=== PATIENT | female | born 1965 | race Caucasian/White ===

== ENCOUNTER 2016-08-08 11:52 | Outpatient (CLI) | payer MEDICAID | END 2016-08-08 11:53 | disposition home or self-care (01) | DX: R10.9 Unspecified abdominal pain (principal) ==

== ENCOUNTER 2016-08-13 16:07 | Emergency (ER) | payer MEDICAID ==
[2016-08-13] MEDS ORDERED: HYDROcod/ACETAM 5/325 MG TABLET PO STA (17:31)
[2016-08-13] MEDS ORDERED: DICYCLOMINE 10 MG CAPSULE PO STA (17:31)
[2016-08-13] MEDS ORDERED: DICYCLOMINE 10 MG CAPSULE PO ONE (17:42)
[2016-08-13] MEDS ORDERED: HYDROcod/ACETAM 5/325 MG TABLET ONE (17:42)
== END 2016-08-13 18:52 | disposition home or self-care (01) ==
DX: R10.30 Lower abdominal pain, unspecified (principal); K57.90 Diverticulosis of intestine, part unspecified, without perforation or abscess without bleeding; Z90.49 Acquired absence of other specified parts of digestive tract; Z90.710 Acquired absence of both cervix and uterus; F17.200 Nicotine dependence, unspecified, uncomplicated
CPT/HCPCS: 36415; 74022; 80053; 80306; 81003; 83690; 85025; 99283; 99284; A9270

== ENCOUNTER 2016-09-04 09:45 | Outpatient (CLI) | payer MEDICAID | END 2016-09-04 09:46 | disposition home or self-care (01) | DX: B37.82 Candidal enteritis (principal) ==

== ENCOUNTER 2016-11-21 09:55 | Outpatient (CLI) | payer MEDICAID | END 2016-11-21 09:56 | disposition home or self-care (01) | DX: R53.83 Other fatigue (principal) ==

== ENCOUNTER 2016-11-23 12:04 | Emergency (ER) | payer MEDICAID ==
--- NOTE | 2016-11-23 12:35 | ED Physician Documentation ---
History of Present Illness - Stated complaint Stated Complaint: Body Pain - Chief complaint Chief Complaint: General - History obtained from History obtained from: Patient - History of Present Illness Timing: How many days ago (several) Pain level max: 5 Pain level now: 5 Radiates to: non-radiating - Additonal information Additional information: Patient is a 51-year-old female who presents to the emergency department with multiple complaints. The first complaint is generalized body aches for the past week. Worse on the right side of the chest, right side of the abdomen and left side of the abdomen. Also bilateral groin pain intermittently. This seems to be worse with movement. She did recently move from one home to another. She denies any fevers or vomiting. Denies any changes in her bowel habits. No hematochezia or melena. She also feels that her legs have been more swollen than usual. States that she also has developed a headache, took Aleve without relief. States sometimes the light hurts her eyes and sometimes she feels like her vision is blurred. States that she has had the abdominal pain for approximately 2 years with no cause found. Review of Systems Ten Systems: 10 systems reviewed and negative Constitutional: denies: Fever, Chills Respiratory: denies: Cough, Wheezing Skin: denies: Rash Musculoskeletal: reports: Back pain (States her back feels sore.) Neurologic: denies: Focal weakness, Numbness, Confused, Altered mental status, LOC PD PAST MEDICAL HISTORY - Past Medical History Past Medical History: Yes Respiratory: Asthma Neuro: Headache/migraine GI: Other Psych: Depression, Anxiety, Post traumatic stress disorder Musculoskeletal: Osteoarthritis, Chronic back pain - Past Surgical History Past Surgical History: Yes General: Cholecystectomy, Colonoscopy, 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 HEENT: Rhinoplasty Derm: Skin cancer surgery - Present Medications Home Medications: Ambulatory Orders Medication Instructions Recorded Confirmed Diazepam 5 mg PO TID 03/16/14 08/13/16 Dicyclomine [Bentyl] 20 mg PO QID PRN #20 capsule 08/13/16 HYDROcod/ACETAM 5/325 [[place] 5/325] 1 - 2 ea PO Q6H PRN #10 tablet 08/13/16 Meloxicam [Mobic] 7.5 mg PO BIDWM PRN #15 tablet 08/13/16 levoFLOXacin [Levaquin] 500 mg PO QD 08/13/16 08/13/16 - Allergies Allergies/Adverse Reactions: Allergies Allergy/AdvReac Type Severity Reaction Status Date / Time Penicillins Allergy Intermediate Hives Verified 08/13/16 16:55 adhesive tape Allergy Rash Verified 08/13/16 16:55 gabapentin [From Neurontin] AdvReac Mild Headache Verified 08/13/16 16:55 - Social History Does the pt smoke?: Yes Smoking Status: Current every day smoker Does the pt drink ETOH?: No Does the pt have substance abuse?: Yes - Immunizations Immunizations are current?: Yes - POLST Patient has POLST: No POLST Status: Full Code PD ED PE NORMAL - Vitals Vital signs reviewed: Yes - General General: Alert and oriented X 3, No acute distress, Well developed/nourished - HEENT HEENT: Atraumatic, PERRL, EOMI, Moist mucous membranes, Pharynx benign - Neck Neck: Supple, no meningeal sign - Cardiac Cardiac: RRR, No murmur, Strong equal pulses - Respiratory Respiratory: No respiratory distress, Clear bilaterally - Abdomen Abdomen: Normal bowel sounds, Soft, Non tender, Non distended - Back Back: No CVA TTP, No spinal TTP - Derm Derm: Warm and dry, No rash - Extremities Extremities: No edema, No calf tenderness / cord - Neuro Neuro: Alert and oriented X 3 - Psych Psych: Normal mood, Normal affect Results - Vitals Vitals: Vital Signs - 24 hr 11/23/16 11/23/16 12:08 15:12 Temperature 37.2 C Heart Rate 67 68 Respiratory 17 16 Rate Blood Pressure 144/80 H 110/60 O2 Saturation 100 96 Oxygen O2 Source Room air - EKG (time done) 1223 Rate: Rate (enter#) (57) Rhythm: NSR [place]: Normal Intervals: Normal [place] QRS: Normal Ischemia: Normal ST segments Computer interpretation: Agree with computer - Labs Labs: Laboratory Tests 11/23/16 11/23/16 11/23/16 13:03 13:03 13:03 WBC 10.6 RBC 5.09 Hgb 14.4 Hct 42.5 MCV 83.4 MCH 28.3 MCHC 33.9 RDW 14.6 Plt Count 228 MPV 9.7 Neut # 5.6 Lymph # 4.3 H [place] # 0.5 Eos # 0.1 Baso # 0.1 Absolute Nucleated RBC 0.00 Nucleated RBCs 0.0 Sodium 141 Potassium 3.8 Chloride 108 Carbon Dioxide 26 Anion Gap 7.0 BUN 10 Creatinine 0.6 Estimated GFR (MDRD) 105 Glucose 100 Calcium 9.4 Total Bilirubin 0.4 AST 20 ALT 19 Alkaline Phosphatase 80 Troponin I < 0.04 B-Natriuretic Peptide Total Protein 7.4 Albumin 4.9 Globulin 2.5 Albumin/Globulin Ratio 2.0 Lipase 172 H Urine Color Urine Clarity Urine pH Ur Specific [place] Urine Protein Urine Glucose (UA) Urine Ketones Urine Occult Blood Urine Nitrite Urine Bilirubin Urine Urobilinogen Ur Leukocyte Esterase Ur Microscopic Review Urine Culture Comments 11/23/16 11/23/16 13:03 14:00 WBC RBC Hgb Hct MCV MCH MCHC RDW Plt Count MPV Neut # Lymph # [place] # Eos # Baso # Absolute Nucleated RBC Nucleated RBCs Sodium Potassium Chloride Carbon Dioxide Anion Gap BUN Creatinine Estimated GFR (MDRD) Glucose Calcium Total Bilirubin AST ALT Alkaline Phosphatase Troponin I B-Natriuretic Peptide 18 Total Protein Albumin Globulin Albumin/Globulin Ratio Lipase Urine Color YELLOW Urine Clarity CLEAR Urine pH 6.0 Ur Specific [place] 1.010 Urine Protein NEGATIVE Urine Glucose (UA) NEGATIVE Urine Ketones NEGATIVE Urine Occult Blood NEGATIVE Urine Nitrite NEGATIVE Urine Bilirubin NEGATIVE Urine Urobilinogen 0.2 (NORMAL) Ur Leukocyte Esterase NEGATIVE Ur Microscopic Review NOT INDICATED Urine Culture Comments NOT INDICATED - Rads (name of study) cxr Radiology: Prelim report reviewed, EMP read contemporaneously, See rad report ( No acute intrathoracic abnormality) PD MEDICAL DECISION MAKING - ED course Complexity details: reviewed results, re-evaluated patient, considered differential, d/w patient, d/w family ED course: Patient presents to the emergency department with multiple vague complaints. No acute findings to suggest acute coronary syndrome on EKG or laboratory testing. Does have a mild elevation of her lipase, but her lipase has been higher than this in the past and she is not vomiting. Possible very mild pancreatitis? She denies any alcohol use. Her headache resolved in the emergency department with Compazine, Toradol, Benadryl and Ativan. She is ambulating without difficulty. No evidence of heart failure. No evidence of aortic aneurysm or dissection. Will have her follow-up with her doctor for further evaluation and care of her complaints. Patient counseled regarding signs and symptoms for which I believe and urgent re-evaluation would be necessary. Patient with good understanding of and agreement to plan and is comfortable going home at this time This document was made in part using voice recognition software. While efforts are made to proofread this document, sound alike and grammatical errors may occur. Departure - Departure Disposition: 01 Home, Self Care Clinical Impression: Chest pain Qualifiers: Chest pain type: other chest pain Qualified Code(s): R07.89 - Other chest pain Headache Qualifiers: Headache type: unspecified Headache chronicity pattern: acute headache Intractability: not intractable Qualified Code(s): R51 - Headache Condition: Good Instructions: ED Chest Pain Atypical Unkn Cause, ED Headache Migraine Follow-Up: Royce Pizarro PA-C [Primary Care Provider] - Within 1 week Comments: Rest today. Return if you worsen. Your blood pressure was elevated today on check in to the emergency department. This does not mean that you have hypertension, it is a common phenomenon to check into the emergency department and have elevated blood pressure. I recommend that you see your primary care physician within the week to have it rechecked when you're feeling better. Discharge Date/Time: 11/23/16 15:12
[2016-11-23] MEDS ORDERED: KETOROLAC 30 MG/ML VIAL ONE (13:13)
[2016-11-23] MEDS ORDERED: LORazepam 2 MG/ML SYRINGE ONE (13:14)
[2016-11-23] MEDS: KETOROLAC 30 MG/ML VIAL IVP STA (13:17)
[2016-11-23] MEDS: LORazepam 2 MG/ML SYRINGE IVP STA (13:17)
[2016-11-23 13:18] LABS: BASOPHILS # (AUTO) 0.1 10^3/uL (0.0-0.1); BASOPHILS % (AUTO) 0.9 %; EOSINOPHILS # (AUTO) 0.1 10^3/uL (0.0-0.7); EOSINOPHILS % (AUTO) 0.8 %; HCT - HEMATOCRIT 42.5 % (37.0-47.0); HGB - HEMOGLOBIN 14.4 g/dL (12.0-16.0); LYMPHOCYTES # (AUTO) 4.3 10^3/uL (1.5-3.5); LYMPHOCYTES % (AUTO) 40.7 %; MEAN CORPUSCULAR HEMOGLOBIN 28.3 pg (27.0-31.0); MEAN CORPUSCULAR HGB CONC 33.9 g/dL (32.0-36.0); MEAN CORPUSCULAR VOLUME 83.4 fL (81.0-99.0); MEAN PLATELET VOLUME 9.7 fL (7.9-10.8); MONOCYTES # (AUTO) 0.5 10^3/uL (0.0-1.0); MONOCYTES % (AUTO) 4.9 %; NEUTROPHILS # (AUTO) 5.6 10^3/uL (1.5-6.6); NEUTROPHILS % (AUTO) 52.7 %; RED BLOOD COUNT 5.09 10^6/uL (4.20-5.40); RED CELL DISTRIBUTION WIDTH 14.6 % (12.0-15.0); UNCORRECTED WHITE BLOOD COUNT 10.6 x10^3/uL; WHITE BLOOD COUNT 10.6 x10^3/uL (4.8-10.8)
[2016-11-23 13:29] LABS: BILIRUBIN,TOTAL 0.4 mg/dL (0.2-1.0); CALCIUM 9.4 mg/dL (8.5-10.3); CREATININE 0.6 mg/dL (0.4-1.0); POTASSIUM 3.8 mmol/L (3.5-5.0); TOTAL PROTEIN 7.4 g/dL (6.7-8.2)
[2016-11-23] MEDS ORDERED: PROCHLORPERAZINE 10 MG/2 ML VIAL ONE (14:08)
[2016-11-23] MEDS ORDERED: diphenhydrAMINE INJ 50 MG/ML VIAL ONE (14:08)
[2016-11-23] MEDS: diphenhydrAMINE INJ 50 MG/ML VIAL IVP STA (14:11)
[2016-11-23] MEDS: PROCHLORPERAZINE 10 MG/2 ML VIAL IVP STA (14:11)
[2016-11-23 14:26] LABS: BILIRUBIN,URINE NEGATIVE (NEGATIVE)
[2016-11-23 14:28] LABS: UA CHARGE (STRIP ONLY) YES; UR CULTURE IF IND NOT INDICATED
--- NOTE | 2016-11-23 14:56 | XRAY Preliminary Report ---
Exam: XR Chest 1 View IMPRESSION: Normal single view chest. [facility] SITE ID: [id number]
--- NOTE | 2016-11-23 14:59 | XRAY Report ---
EXAM: CHEST RADIOGRAPHY EXAM DATE: 11/23/2016 02:38 PM. CLINICAL HISTORY: Chest pain. COMPARISON: Chest x-ray 06/20/2016. TECHNIQUE: 1 view. FINDINGS: Lungs/Pleura: No focal opacities evident. No pleural effusion. No pneumothorax. Mediastinum: Within exam limitations, cardiomediastinal contour is normal. Other: None. IMPRESSION: Normal single view chest. [facility] Referring Provider Line: [phone] SITE ID: [id number]
[2016-11-23 15:13] VITALS: BP 110/60
== END 2016-11-23 15:12 | disposition home or self-care (01) ==
LOC: ED 12:04
DX: R07.9 Chest pain, unspecified (principal); R07.89 Other chest pain; R51 Headache; R03.0 Elevated blood-pressure reading, without diagnosis of hypertension; J45.909 Unspecified asthma, uncomplicated; M19.90 Unspecified osteoarthritis, unspecified site; F17.200 Nicotine dependence, unspecified, uncomplicated
CPT/HCPCS: 36415; 71010; 80053; 81001; 81003; 83690; 83880; 84484; 85025; 87086; 93005; 93010; 96374; 96375; 99283; 99284

== ENCOUNTER 2017-08-03 14:28 | Emergency (ER) | payer MEDICAID ==
[2017-08-03] MEDS ORDERED: MORPHINE 10 MG/ML VIAL IVP STA (14:58)
--- NOTE | 2017-08-03 15:00 | ED Physician Documentation ---
PD HPI BACK PAIN - Stated complaint Stated Complaint: MID BACK PAIN - Chief complaint Chief Complaint: Cardiac - History obtained from History obtained from: Patient - History of Present Illness Timing - onset: Other (52-year-old woman with some ongoing abdominal issues without clear diagnosis status post upper endoscopy with chronic constipation. She is also had a remote Cholecystectomy presents with mid back pain radiating across like a burning for the last 2 days to the radiating to the right upper quadrant associated with sweats and chills without measured fevers. She had a whitish bowel movement the other day.) Review of Systems Ten Systems: 10 systems reviewed and negative Constitutional: reports: Myalgias, Fatigue, Sweats. denies: Fever, Chills Nose: denies: Rhinorrhea / runny nose, Congestion GI: reports: Abdominal Pain, Nausea, Constipation. 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 HEENT: Rhinoplasty Derm: Skin cancer surgery - Present Medications Home Medications: Ambulatory Orders Medication Instructions Recorded Confirmed HYDROcod/ACETAM 5/325 [[place] 5/325] 1 - 2 ea PO Q6H PRN #15 tablet 08/03/17 - Allergies Allergies/Adverse Reactions: Allergies Allergy/AdvReac Type Severity Reaction Status Date / Time Penicillins Allergy Intermediate Hives Verified 08/03/17 14:43 adhesive tape Allergy Rash Verified 08/03/17 14:43 gabapentin [From Neurontin] AdvReac Mild Headache Verified 08/03/17 14:43 - Social History Does the pt smoke?: Yes Smoking Status: Current every day smoker Does the pt drink ETOH?: No Does the pt have substance abuse?: Yes - Immunizations Immunizations are current?: Yes - POLST Patient has POLST: No POLST Status: Full Code PD ED PE NORMAL - Vitals Vital signs reviewed: Yes - General General: Alert and oriented X 3, No acute distress - HEENT HEENT: PERRL, EOMI - Neck Neck: Supple, no meningeal sign, No bony TTP - Cardiac Cardiac: RRR, No murmur - Respiratory Respiratory: No respiratory distress, Clear bilaterally - Abdomen Abdomen: Normal bowel sounds, Soft, Non tender - Back Back: No CVA TTP, No spinal TTP - Derm Derm: Other (No shingles rash at this juncture) - Extremities Extremities: No edema, No calf tenderness / cord - Neuro Neuro: Alert and oriented X 3, Normal speech Results - Vitals Vitals: Vital Signs - 24 hr 08/03/17 08/03/17 08/03/17 14:42 14:51 16:39 Temperature 36.7 C Heart Rate 70 67 54 L Respiratory 20 17 16 Rate Blood Pressure 121/85 H 121/85 H 122/81 H O2 Saturation 98 97 95 Oxygen O2 Source Room air - EKG (time done) 1439 Rate: Rate (enter#) (74) Rhythm: NSR [place]: Normal Intervals: Normal [place] QRS: Normal Ischemia: Normal ST segments Computer interpretation: Agree with computer - Labs Labs: Laboratory Tests 08/03/17 08/03/17 08/03/17 15:05 15:05 15:30 WBC 10.0 RBC 4.93 Hgb 13.8 Hct 41.3 MCV 83.8 MCH 27.9 MCHC 33.3 RDW 14.2 Plt Count 253 MPV 9.0 Neut # 5.5 Lymph # 3.7 H [place] # 0.6 Eos # 0.1 Baso # 0.1 Absolute Nucleated RBC 0.00 Nucleated RBC % 0.0 Sodium 140 Potassium 4.0 Chloride 108 Carbon Dioxide 25 Anion Gap 7.0 BUN 12 Creatinine 0.6 Estimated GFR (MDRD) 105 Glucose 91 Calcium 9.0 Total Bilirubin 0.7 AST 14 ALT 14 Alkaline Phosphatase 79 Total Protein 7.1 Albumin 4.4 Globulin 2.7 Albumin/Globulin Ratio 1.6 Lipase 34 Urine Color YELLOW Urine Clarity CLEAR Urine pH 6.0 Ur Specific [place] 1.015 Urine Protein NEGATIVE Urine Glucose (UA) NEGATIVE Urine Ketones NEGATIVE Urine Occult Blood NEGATIVE Urine Nitrite NEGATIVE Urine Bilirubin NEGATIVE Urine Urobilinogen 0.2 (NORMAL) Ur Leukocyte Esterase NEGATIVE Ur Microscopic Review NOT INDICATED Urine Culture Comments NOT INDICATED - Rads (name of study) CT A/P Radiology: EMP read contemporaneously (NAD) PD MEDICAL DECISION MAKING - ED course ED course: 52-year-old woman with right-sided back pain which is probably musculoskeletal but has some other atypical symptoms so workup was pursued including CT imaging without relevant findings. Her pain was easily controlled in the emergency department. Departure - Departure Disposition: 01 Home, Self Care Clinical Impression: Back pain Qualifiers: Back pain location: thoracic back pain Chronicity: acute Back pain laterality: right Qualified Code(s): M54.6 - Pain in thoracic spine Condition: Good Record reviewed to determine appropriate education?: Yes Instructions: ED Low Back Pain Injury Prescriptions: HYDROcod/ACETAM 5/325 [[place] 5/325] 1 - 2 ea PO Q6H PRN #15 tablet PRN Reason: Pain Comments: Return for increasing or changed pain or other new symptoms including but not limited to fevers, rash, vomiting. Otherwise follow-up with your doctor, next available appointment.
[2017-08-03 15:29] LABS: BASOPHILS # (AUTO) 0.1 10^3/uL (0.0-0.1); BASOPHILS % (AUTO) 0.9 %; EOSINOPHILS # (AUTO) 0.1 10^3/uL (0.0-0.7); EOSINOPHILS % (AUTO) 1.2 %; HGB - HEMOGLOBIN 13.8 g/dL (12.0-16.0); LYMPHOCYTES # (AUTO) 3.7 10^3/uL (1.5-3.5); LYMPHOCYTES % (AUTO) 36.7 %; MEAN CORPUSCULAR HEMOGLOBIN 27.9 pg (27.0-31.0); MEAN CORPUSCULAR HGB CONC 33.3 g/dL (32.0-36.0); MEAN CORPUSCULAR VOLUME 83.8 fL (81.0-99.0); MONOCYTES # (AUTO) 0.6 10^3/uL (0.0-1.0); MONOCYTES % (AUTO) 5.9 %; NEUTROPHILS # (AUTO) 5.5 10^3/uL (1.5-6.6); NEUTROPHILS % (AUTO) 55.3 %; PLT - PLATELET COUNT 253 10^3/uL (130-450); RED BLOOD COUNT 4.93 10^6/uL (4.20-5.40); RED CELL DISTRIBUTION WIDTH 14.2 % (12.0-15.0)
[2017-08-03 16:00] LABS: ALBUMIN 4.4 g/dL (3.2-5.5); ALBUMIN/GLOBULIN RATIO 1.6 (1.0-2.2); BILIRUBIN,TOTAL 0.7 mg/dL (0.2-1.0); CREATININE 0.6 mg/dL (0.4-1.0); TOTAL PROTEIN 7.1 g/dL (6.7-8.2)
[2017-08-03 16:02] LABS: BILIRUBIN,URINE NEGATIVE (NEGATIVE); GLUCOSE, URINE (UA) NEGATIVE (NEGATIVE); KETONES,URINE (UA) NEGATIVE (NEGATIVE); LEUKOCYTE ESTERASE, URINE NEGATIVE (NEGATIVE); NITRITE,URINE NEGATIVE (NEGATIVE); OCCULT BLOOD,URINE NEGATIVE (NEGATIVE); PROTEIN,URINE NEGATIVE (NEGATIVE); UROBILINOGEN,URINE 0.2 (NORMAL) E.U./dL (NORMAL)
[2017-08-03 16:06] LABS: CLARITY,URINE CLEAR (CLEAR)
[2017-08-03] MEDS ORDERED: IOPAMIDOL-300 100 ML VIAL ONE (16:20)
[2017-08-03] MEDS ORDERED: IOPAMIDOL-300 100 ML VIAL IVP ONE (16:27)
[2017-08-03 16:39] VITALS: BP 122/81
--- NOTE | 2017-08-03 17:32 | CT Preliminary Report ---
Exam: CT ABDOMEN/PELVIS W/ IMPRESSION: 1. Normal appendix. 2. Small volume of stool in the colon. No diverticulitis. No bowel obstruction. 3. No obstructing calculi. No hydronephrosis. No bladder calculi. 4. Status post cholecystectomy. [facility] SITE ID: [id number]
[2017-08-03] MEDS ORDERED: HYDROcod/ACET 5/325 Prepack 6 PO STA (17:40)
--- NOTE | 2017-08-03 17:42 | CT Report ---
EXAM: CT ABDOMEN AND PELVIS EXAM DATE: 08/03/2017 04:37 PM. CLINICAL HISTORY: Right abdominal/back pain. Posterior abdominal pain. COMPARISONS: 08/13/2016. 06/20/2016. 08/21/2015. TECHNIQUE: Routine helical CT imaging was performed through the abdomen and pelvis. IV contrast: 100 mL of Isovue-300. Enteric contrast: No. Reconstructions: Coronal and sagittal. In accordance with CT protocol optimization, one or more of the following dose reduction techniques w ere utilized for this exam: automated exposure control, adjustment of mA and/or KV based on patient s ize, or use of iterative reconstructive technique. FINDINGS: Lung Bases: Lung bases are clear. Included portions of the heart are unremarkable. Liver: Liver enhances homogenously. Mild intrahepatic ductal dilatation, likely unchanged. No hepatic lesions. Patent portal vein. Gallbladder/Bile Ducts: Status post cholecystectomy. Common bile duct measures up to 8-9 mm. No filli ng defects are identified. Spleen: Normal. Pancreas: Pancreas enhances homogeneously. No peripancreatic edema or pancreatic duct dilatation. Adrenal Glands: Normal. Kidneys: Kidneys enhance symmetrically. No nephrolithiasis or hydronephrosis. Peritoneal Cavity/Bowel: Stomach is mildly distended and unremarkable. No small bowel obstruction or small bowel wall thickening. Small fatty umbilical hernia. Diverticula are seen in the colon, largely the distal colon. No evidence of diverticulitis. Small volume of stool seen in the colon. The append ix is well visualized and normal. Pelvic Organs: Urinary bladder is unremarkable. Uterus is absent. No pelvic adenopathy. No pelvic terra e fluid. Vasculature: Atherosclerotic calcified plaque. No aneurysm. Mesenteric vasculature is patent. Bones: Degenerative changes of the lower lumbar spine. Grade 1 anterolisthesis of L4 on L5. Lumbar fa cet arthropathy. Degenerative changes of both hip joints. Other: None. IMPRESSION: 1. Normal appendix. 2. Small volume of stool in the colon. No diverticulitis. No bowel obstruction. 3. No obstructing calculi. No hydronephrosis. No bladder calculi. 4. Status post cholecystectomy. [facility] Referring Provider Line: [phone] SITE ID: [id number]
== END 2017-08-03 17:57 | disposition home or self-care (01) ==
LOC: ED 14:28
DX: M54.6 Pain in thoracic spine (principal); F17.200 Nicotine dependence, unspecified, uncomplicated
CPT/HCPCS: 36415; 74177; 80053; 81003; 83690; 85025; 93005; 96374; 99283; Q9967; 81001; 87086

== ENCOUNTER 2017-09-04 16:15 | Emergency (ER) | payer MEDICAID ==
[2017-09-04 16:20] VITALS: BP 143/88
--- NOTE | 2017-09-04 17:17 | ED Physician Documentation ---
PD HPI URI - Stated complaint Stated Complaint: HEAD/NECKACHE - Chief complaint Chief Complaint: Heent - History obtained from History obtained from: Patient - History of Present Illness Timing - onset: How many days ago (4-5) Timing duration: Days Timing details: Gradual onset, Still present, Waxing and waning Associated symptoms: Nasal congestion, Sinus pain, Sore throat (in mornings). No: Fever, Ear pain, Rhinorrhea, Dry cough, Productive cough Contributing factors: No: Sick contact, Travel, Immunocompromised Similar symptoms before: Diagnosis (has had migraines in the past, though she says this does not feel entirely like that.), Has not had sx before Recently seen: Other (talked with PCP and thought was sinus pain. She is on doxy for acne/skin and was to continue that. No other meds.) Review of Systems Constitutional: denies: Fever, Chills Eyes: denies: Loss of vision, Decreased vision Ears: denies: Drainage/discharge, Tinnitus/ringing Nose: reports: Congestion, Sinus pressure / pain. denies: Rhinorrhea / runny nose Throat: reports: Sore throat (in mornings). denies: Dental pain / toothache, Swollen tonsils Cardiac: denies: Chest pain / pressure Respiratory: denies: Dyspnea, Cough Neurologic: reports: Headache. 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: Hysterectomy HEENT: Rhinoplasty Derm: Skin cancer surgery - Present Medications Home Medications: Ambulatory Orders Medication Instructions Recorded Confirmed HYDROcod/ACETAM 5/325 [[place] 5/325] 1 - 2 ea PO Q6H PRN #15 tablet 08/03/17 Cephalexin [Keflex] 500 mg PO TID #20 capsule 09/04/17 Dexamethasone [Decadron] 4 mg PO DAILY #5 tablet 09/04/17 Meclizine [Antivert] 25 mg PO Q6H PRN #20 tablet 09/04/17 Ondansetron Odt [Zofran] 4 mg TL Q6H PRN #15 tablet 09/04/17 Oxycodone HCl/Acetaminophen 1 each PO Q6H PRN #20 tablet 09/04/17 [Percocet 5-325 mg Tablet] - Allergies Allergies/Adverse Reactions: Allergies Allergy/AdvReac Type Severity Reaction Status Date / Time Penicillins Allergy Intermediate Hives Verified 09/04/17 16:19 adhesive tape Allergy Rash Verified 09/04/17 16:19 gabapentin [From Neurontin] AdvReac Mild Headache Verified 09/04/17 16:19 - Social History Does the pt smoke?: Yes Smoking Status: Current every day smoker Does the pt drink ETOH?: No Does the pt have substance abuse?: Yes - Immunizations Immunizations are current?: Yes - POLST Patient has POLST: No POLST Status: Full Code PD ED PE NORMAL - Vitals Vital signs reviewed: Yes - General General: Alert and oriented X 3, No acute distress, Well developed/nourished - HEENT HEENT: Atraumatic, PERRL, Ears normal, Pharynx benign, Other (mild sinus tender to percussion maxillary, not frontal. No rash nor sores. ) - Neck Neck: Supple, no meningeal sign, Other (anterior mild adenopathy. ) - Cardiac Cardiac: RRR, No murmur - Respiratory Respiratory: Clear bilaterally - Derm Derm: Normal color, Warm and dry, No rash - Extremities Extremities: No tenderness to palpate, Normal ROM s pain - Neuro Neuro: Alert and oriented X 3, travel counselor 2-12 intact, No motor deficit, No sensory deficit, Normal speech, Other Results - Vitals Vitals: Oxygen O2 Source Room air PD MEDICAL DECISION MAKING - ED course Complexity details: considered differential (components to sound like sinusitis. No red flags to suggest meningitis, structural process, bleed, CVA.) , d/w patient Departure - Departure Disposition: 01 Home, Self Care Clinical Impression: Facial pain, acute Headache Qualifiers: Headache type: unspecified Headache chronicity pattern: acute headache Intractability: not intractable Qualified Code(s): R51 - Headache Condition: Stable Record reviewed to determine appropriate education?: Yes Instructions: ED Cephalgia Unspecified, ED Headache Sinus Follow-Up: LADY GARCIA [Primary Care Provider] - Prescriptions: Cephalexin [Keflex] 500 mg PO TID #20 capsule Dexamethasone [Decadron] 4 mg PO DAILY #5 tablet Meclizine [Antivert] 25 mg PO Q6H PRN #20 tablet PRN Reason: Vertigo Ondansetron Odt [Zofran] 4 mg TL Q6H PRN #15 tablet PRN Reason: Nausea / Vomiting Oxycodone HCl/Acetaminophen [Percocet 5-325 mg Tablet] 1 each PO Q6H PRN #20 tablet PRN Reason: Pain Comments: This sounds likely to be a sinus infection and inflammation. I would change from the doxycycline to cephalexin for the next week. Decadron steroid daily for the next 5 more days. Use ondansetron if needed for nausea. Meclizine if needed for dizziness. Add Tylenol or oxycodone if needed for pains. Recheck if not improving over the next 2-3 days and return sooner if worsening. Discharge Date/Time: 09/04/17 17:53
[2017-09-04] MEDS ORDERED: oxyCOD/ACETAMIN 5 MG/325 MG TABLET PO STA (17:36)
[2017-09-04] MEDS ORDERED: cephALEXin 250 MG CAPSULE PO STA (17:36)
[2017-09-04] MEDS ORDERED: ONDANSETRON ODT 4 MG TABLET TL STA (17:36)
[2017-09-04] MEDS ORDERED: DEXAMETHASONE 10 MG/ML VIAL PO STA (17:36)
[2017-09-04] MEDS ORDERED: MECLIZINE 12.5 MG TABLET PO STA (17:36)
== END 2017-09-04 17:53 | disposition home or self-care (01) ==
LOC: ED 16:15
DX: R51 Headache (principal); J45.909 Unspecified asthma, uncomplicated; M19.90 Unspecified osteoarthritis, unspecified site; F17.200 Nicotine dependence, unspecified, uncomplicated
CPT/HCPCS: 93005; 99283; A9270; Q0162

== ENCOUNTER 2017-11-11 14:29 | Outpatient (CLI) | payer MEDICAID ==
--- NOTE | 2017-11-11 19:00 | Ultrasound Report ---
RIGHT BREAST ULTRASOUND: 11/11/2017 CLINICAL INDICATION: Localized right breast pain. TECHNIQUE: Real-time scanning was performed with registered representative static images obtained. FINDINGS: Ultrasound of the right upper outer quadrant was performed, directed at the site of maximal tenderness identified by the patient. Unremarkable parenchymal lobules are seen. No discrete solid or cystic mass is identified. No sonographically suspicious findings are seen. IMPRESSION: NEGATIVE EXAMINATION. RECOMMENDATION: Routine annual screening unless otherwise clinically indicated. BIRADS CATEGORY 1-NEGATIVE. TD: 11/11/2017 18:58
--- NOTE | 2017-11-11 19:08 | Mammography Report ---
DIAGNOSTIC BILATERAL MAMMOGRAM: 11/11/2017 CLINICAL INDICATION: Localized right breast pain. TECHNIQUE: Bilateral CC and MLO views, right true lateral view. COMPARISON: 12/10/2014, 10/09/2010, 02/10/2008 FINDINGS Markers were placed at the site of maximal tenderness identified by the patient. The breasts demonstrate scattered fibroglandular densities bilaterally. No suspicious masses, clustered microcalcifications, or regions of architectural distortion are identified. Please also refer to right breast ultrasound of the same day. IMPRESSION: NEGATIVE EXAMINATION. RECOMMENDATION: Routine annual screening unless otherwise clinically indicated. BIRADS CATEGORY 1-NEGATIVE. STANDARD QUALIFYING STATEMENTS 1. This examination was reviewed with the aid of Computed Aided Detection (CAD). 2. A negative x-ray report should not delay biopsy if a dominant or clinically suspicious mass is present. More than 5% of cancers are not identified by x-ray. 3. Dense breasts may obscure an underlying neoplasm. TD: 11/11/2017 19:07 JULIEN
== END 2017-11-11 14:30 | disposition home or self-care (01) ==
LOC: DI 14:29
PROVIDERS: ATTEND Family Medicine
DX: N64.4 Mastodynia (principal)
CPT/HCPCS: 76642; 77066

== ENCOUNTER 2017-12-03 08:00 | Outpatient (CLI) | payer MEDICAID ==
[2017-12-03 12:51] LABS: BASOPHILS # (AUTO) 0.1 10^3/uL (0.0-0.1); BASOPHILS % (AUTO) 0.7 %; EOSINOPHILS # (AUTO) 0.1 10^3/uL (0.0-0.7); EOSINOPHILS % (AUTO) 1.1 %; HGB - HEMOGLOBIN 13.5 g/dL (12.0-16.0); LYMPHOCYTES # (AUTO) 3.4 10^3/uL (1.5-3.5); LYMPHOCYTES % (AUTO) 31.9 %; MEAN CORPUSCULAR HEMOGLOBIN 27.5 pg (27.0-31.0); MEAN CORPUSCULAR VOLUME 83.3 fL (81.0-99.0); MEAN PLATELET VOLUME 9.5 fL (7.9-10.8); MONOCYTES # (AUTO) 0.5 10^3/uL (0.0-1.0); MONOCYTES % (AUTO) 5.1 %; NEUTROPHILS # (AUTO) 6.6 10^3/uL (1.5-6.6); NEUTROPHILS % (AUTO) 61.2 %; PLT - PLATELET COUNT 272 10^3/uL (130-450); RED BLOOD COUNT 4.92 10^6/uL (4.20-5.40); RED CELL DISTRIBUTION WIDTH 14.5 % (12.0-15.0); WHITE BLOOD COUNT 10.8 x10^3/uL (4.8-10.8)
[2017-12-03 13:11] LABS: HB2 TOTAL 14.6 g/dL; HEMOGLOBIN A1C 0.53 g/dL; HEMOGLOBIN A1C % 5.5 % (4.6-6.2)
[2017-12-03 13:15] LABS: ALBUMIN 4.2 g/dL (3.2-5.5); ALBUMIN/GLOBULIN RATIO 1.6 (1.0-2.2); ALKALINE PHOSPHATASE 69 IU/L (42-121); ALT ALANINE AMINOTRANSFERASE 18 IU/L (10-60); AST ASPARTATE AMINOTRANSFERASE 23 IU/L (10-42); BILIRUBIN,TOTAL 0.5 mg/dL (0.2-1.0); BUN - BLOOD UREA NITROGEN 11 mg/dL (6-20); CALCIUM 9.1 mg/dL (8.5-10.3); CARBON DIOXIDE - CO2 25 mmol/L (21-32); CHLORIDE 106 mmol/L (101-111); CHOL/HDL RATIO 3.6 (<4.4); CHOLESTEROL 200 mg/dL; CREATININE 0.6 mg/dL (0.4-1.0); GFR - MDRD 105 (>89); GLUCOSE 102 mg/dL (70-100); HDL CHOLESTEROL 56 mg/dL; LDL CHOLESTEROL,CALCULATED 126 mg/dL; LDL/HDL RATIO 2.3 (<4.4); SODIUM 140 mmol/L (135-145); TOTAL PROTEIN 6.9 g/dL (6.7-8.2); VLDL CHOLESTEROL 18 mg/dL
== END 2017-12-03 08:01 | disposition home or self-care (01) ==
LOC: LAB.N 08:00
PROVIDERS: ATTEND Nurse Practitioner
DX: E78.2 Mixed hyperlipidemia (principal); R73.9 Hyperglycemia, unspecified; R53.83 Other fatigue; E55.9 Vitamin D deficiency, unspecified
CPT/HCPCS: 36415; 80053; 80061; 82306; 83036; 83721; 84443; 85025

== ENCOUNTER 2018-02-02 13:32 | Emergency (ER) | payer MEDICAID ==
[2018-02-02 13:46] VITALS: BP 129/66
== END 2018-02-02 15:37 | disposition left against medical advice (07) ==
LOC: ED 13:32
DX: Z53.21 Procedure and treatment not carried out due to patient leaving prior to being seen by health care provider (principal)

== ENCOUNTER 2018-02-07 16:39 | Emergency (ER) | payer MEDICAID ==
[2018-02-07] MEDS ORDERED: METOCLOPRAMIDE 10 MG/2 ML VIAL IVP STA (17:15)
[2018-02-07] MEDS ORDERED: KETOROLAC 60 MG/2 ML VIAL IVP STA (17:15)
[2018-02-07] MEDS ORDERED: ACETAMINOPHEN 500 MG TABLET PO STA (17:15)
[2018-02-07] MEDS ORDERED: diphenhydrAMINE INJ 50 MG/ML VIAL IVP STA (17:15)
[2018-02-07] MEDS ORDERED: SODIUM CHLORIDE 0.9% 1,000 ML IV ONE (17:15)
[2018-02-07 17:42] LABS: BASOPHILS # (AUTO) 0.1 10^3/uL (0.0-0.1); BASOPHILS % (AUTO) 1.1 %; EOSINOPHILS # (AUTO) 0.1 10^3/uL (0.0-0.7); EOSINOPHILS % (AUTO) 0.6 %; HGB - HEMOGLOBIN 14.4 g/dL (12.0-16.0); LYMPHOCYTES # (AUTO) 3.4 10^3/uL (1.5-3.5); LYMPHOCYTES % (AUTO) 36.2 %; MEAN CORPUSCULAR HEMOGLOBIN 28.8 pg (27.0-31.0); MEAN CORPUSCULAR HGB CONC 33.8 g/dL (32.0-36.0); MEAN CORPUSCULAR VOLUME 85.1 fL (81.0-99.0); MEAN PLATELET VOLUME 8.9 fL (7.9-10.8); MONOCYTES # (AUTO) 0.6 10^3/uL (0.0-1.0); MONOCYTES % (AUTO) 6.8 %; NEUTROPHILS # (AUTO) 5.2 10^3/uL (1.5-6.6); NEUTROPHILS % (AUTO) 55.3 %; PLT - PLATELET COUNT 262 10^3/uL (130-450); RED BLOOD COUNT 4.99 10^6/uL (4.20-5.40); RED CELL DISTRIBUTION WIDTH 14.6 % (12.0-15.0); WHITE BLOOD COUNT 9.4 x10^3/uL (4.8-10.8)
[2018-02-07 17:51] LABS: ALBUMIN 4.7 g/dL (3.2-5.5); ALBUMIN/GLOBULIN RATIO 1.7 (1.0-2.2); BILIRUBIN,TOTAL 0.9 mg/dL (0.2-1.0); CALCIUM 9.6 mg/dL (8.5-10.3); CREATININE 0.7 mg/dL (0.4-1.0); TOTAL PROTEIN 7.4 g/dL (6.7-8.2)
[2018-02-07] MEDS ORDERED: IOPAMIDOL-300 100 ML VIAL ONE (18:16)
[2018-02-07] MEDS ORDERED: IOPAMIDOL-300 100 ML VIAL IVP ONE (18:37)
--- NOTE | 2018-02-07 19:03 | CT Report ---
Procedure Date: 02/07/2018 Accession Number: [id number] / [id number] Procedure: CT - Head Angio CPT Code: FULL RESULT: CT HEAD WITHOUT AND WITH CONTRAST AND CT ANGIOGRAM HEAD INDICATION: 52-year-old female with headache and right-sided eye issues (as per the 3d technologist). TECHNIQUE: Head CT: Sequential 5 mm axial images were obtained through the brain prior to and following the CT angiograms. CT Angiogram Head: 100 mL of Isovue-300 contrast were injected at a rapid rate through a large bore, antecubital intravenous catheter. The head was scanned helically during arterial phase. Data was reconstructed into 0.5 mm axial images. In addition, MIP reconstructions have been generated in multiple projections to allow better assessment of the intracranial arteries. In accordance with CT protocol optimization, one or more of the following dose reduction techniques were utilized for this exam: automated exposure control, adjustment of mA and/or KV based on patient size, or use of iterative reconstructive technique. COMPARISON: Head CT 11/17/2014 FINDINGS: Head CT: The jugular size is normal and stable. Attenuation of cortex and white matter appears normal throughout. No intracranial hemorrhage or abnormal extraaxial fluid collection. No enhancing space-occupying mass lesion is demonstrated. There appears be normal intravascular contrast enhancement in the dural venous sinuses and deep venous structures. Middle ear cavities and imaged mastoid air cells appear clear. The imaged paranasal sinuses appear clear. 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 CT Angiogram Head: Anterior Circulation: The internal carotid arteries appear widely patent bilaterally. No ICA aneurysm is identified. The A1 segments of the anterior cerebral arteries are essentially codominant. There probably is a tiny anterior communicating artery. There appears to be good filling of A2 and distal KEV branches bilaterally. No obvious KEV branch occlusion is demonstrated. The middle cerebral arteries are unremarkable. No aneurysm is identified and there is no obvious occlusion or hemodynamically significant stenosis affecting the branches of either MCA. There appear to be a similar number of opacified M3 and M4 branches bilaterally. Posterior Circulation: The vertebral arteries and PICAs are patent. No aneurysm is identified at either PICA origin. The basilar artery, superior cerebellar arteries, and posterior cerebral arteries appear widely patent. There are small patent posterior communicating arteries. No aneurysms are seen arising from the basilar artery trunk or apex. IMPRESSION: CT Head: Negative study. No evidence of hemorrhage, infarction, space-occupying mass lesion or other acute intracranial pathology. CT Angiogram Head: Normal examination.
[2018-02-07 19:16] VITALS: BP 121/70
--- NOTE | 2018-02-07 19:27 | CT Report ---
Procedure Date: 02/07/2018 Accession Number: [id number] / [id number] Procedure: CT - Neck Angio CPT Code: FULL RESULT: EXAM: CT angiogram. INDICATION: 52-year-old female. Right-sided eye issues (black spots in vision) with headache. TECHNIQUE: 100 cc of Isovue-300 contrast were injected at a rapid rate through a large bore, right antecubital intravenous catheter. The neck was scanned helically during arterial phase. Data was reconstructed into 0.5 mm axial images. In addition, MIP reconstructions have been generated in multiple projections to allow better assessment of the extracranial carotid and vertebral arteries. Significant arterial stenoses will be assessed using NASCET type measurements. In accordance with CT protocol optimization, one or more of the following dose reduction techniques were utilized for this exam: automated exposure control, adjustment of mA and/or KV based on patient size, or use of iterative reconstructive technique. COMPARISON: None. FINDINGS: There is normal branching of the aortic arch. Respiratory or other motion artifacts in combination with beam hardening artifact (from dense contrast in the upper SVC and right brachiocephalic vein) limited evaluation of the first-order supra-aortic arteries. Grossly no pathology is demonstrated. Right carotid artery: Normal. Left carotid artery: Normal. Right vertebral artery: Widely patent from origin to distal V3 segment. Left vertebral artery: Widely patent from origin to distal V3 segment. Incidentally noted are a few tiny (roughly 5 mm diameter or less) hypodensities in the thyroid, almost certainly representing benign disease (i.e., adenomas or colloid cysts). No dominant thyroid mass lesion is demonstrated. No evidence of extracapsular disease or regional lymphadenopathy. Also demonstrated are degenerative changes throughout the cervical spine. Evaluation is somewhat limited, however, no obvious, high-grade spinal stenosis is demonstrated. IMPRESSION: Unremarkable neck CTA. No evidence of dissection or stenosis in the extracranial carotid or vertebral arteries.
[2018-02-07] MEDS ORDERED: SUMAtriptan 6 MG/0.5 ML VIAL SUBQ STA (20:48)
--- NOTE | 2018-02-07 20:49 | ED Physician Documentation ---
History of Present Illness - Stated complaint Stated Complaint: STOKE SYMPTOMS - Chief complaint Chief Complaint: Neuro - History obtained from History obtained from: Patient - Additonal information Additional information: 52-year-old female was brought to the emergency department For evaluation of a headache which started on December 22 and has been continuous since then. The patient reports that she has ongoing migraines and typically her headaches do not last this long. She also reports that she has been having ongoing right- sided body pain. The patient denies focal motor weakness or sensory changes. The patient denies speech difficulty, confusion or facial weakness. The patient does report one episode of right eye blurriness. Presently, the patient has no ocular complaints or vision changes. The patient denies chest pain, shortness of breath, fevers or neck pain. No other associated symptoms. Review of Systems Constitutional: denies: Fever, Chills Eyes: denies: Loss of vision, Decreased vision, Photophobia Ears: denies: Ear pain Nose: denies: Congestion Throat: denies: Dental pain / toothache Cardiac: denies: Chest pain / pressure Respiratory: denies: Dyspnea GI: denies: Abdominal Pain : denies: Dysuria Skin: denies: Rash Musculoskeletal: denies: Neck pain, Back pain Neurologic: reports: Headache. 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: Hysterectomy HEENT: Rhinoplasty Derm: Skin cancer surgery - Present Medications Home Medications: Ambulatory Orders Medication Instructions Recorded Confirmed Cholecalciferol [Vitamin D3] 5,000 unit 02/02/18 FLUoxetine [PROzac] 20 mg 02/02/18 Lubiprostone [Amitiza] 8 mcg 02/02/18 Gabapentin 100 mg PO 02/07/18 - Allergies Allergies/Adverse Reactions: Allergies Allergy/AdvReac Type Severity Reaction Status Date / Time Penicillins Allergy Intermediate Hives Verified 02/07/18 16:45 adhesive tape Allergy Rash Verified 02/07/18 16:45 - Social History Does the pt smoke?: Yes Smoking Status: Current every day smoker Does the pt drink ETOH?: No Does the pt have substance abuse?: No Substance Use and Type: Marijuana - Immunizations Immunizations are current?: Yes - POLST Patient has POLST: No POLST Status: Full Code PD ED PE NORMAL - General General: Alert and oriented X 3, No acute distress, Well developed/nourished - HEENT HEENT: Atraumatic, PERRL, EOMI, Ears normal - Neck Neck: Supple, no meningeal sign - Cardiac Cardiac: RRR, Strong equal pulses - Respiratory Respiratory: No respiratory distress, Clear bilaterally - Abdomen Abdomen: Normal bowel sounds, Non tender, Non distended - Back Back: No spinal TTP - Derm Derm: Normal color, No rash - Extremities Extremities: No deformity, Normal ROM s pain - Neuro Neuro: Alert and oriented X 3, plaster whittler 2-12 intact, No motor deficit, No sensory deficit, Normal speech, Other (The patient's face is symmetric, the patient's tongue is midline, the patient has normal sensation in the face. The patient has normal cranial nerves II through XII, the patient has normal private pilot strength bilaterally. The patient has a negative pronator drift in the upper and lower extremity. The patient has a normal finger-nose and heel to garnett. The patient had a negative Romberg. The patient has normal patellar reflexes. The patient has normal strength in the upper and lower extremities.. The patient has normal sensation light touch in the upper and lower extremities) - Psych Psych: Normal mood Results - Vitals Vitals: Vital Signs - 24 hr 02/07/18 02/07/18 02/07/18 16:42 19:15 20:13 Temperature 36.4 C L Heart Rate 56 L 51 L Respiratory 18 16 17 Rate Blood Pressure 145/66 H 121/70 O2 Saturation 97 95 Oxygen O2 Source Room air - EKG (time done) 18: 02 Rate: Rate (enter#) Rhythm: Sinus bradycardia Intervals: Normal WA, QRS normal Ischemia: Normal ST segments Other comments: Other comments (Sinus bradycardia with no acute ischemic or arrhythmic changes) - Labs Labs: Laboratory Tests 02/07/18 02/07/18 02/07/18 17:32 17:32 17:32 WBC 9.4 RBC 4.99 Hgb 14.4 Hct 42.5 MCV 85.1 MCH 28.8 MCHC 33.8 RDW 14.6 Plt Count 262 MPV 8.9 Neut # (Auto) 5.2 Lymph # (Auto) 3.4 [place] # (Auto) 0.6 Eos # (Auto) 0.1 Baso # (Auto) 0.1 Absolute Nucleated RBC 0.00 Nucleated RBC % 0.0 Sodium 140 Potassium 3.6 Chloride 104 Carbon Dioxide 27 Anion Gap 9.0 BUN 8 Creatinine 0.7 Estimated GFR (MDRD) 88 L Glucose 96 Calcium 9.6 Total Bilirubin 0.9 AST 19 ALT 18 Alkaline Phosphatase 71 Troponin I < 0.04 Total Protein 7.4 Albumin 4.7 Globulin 2.7 Albumin/Globulin Ratio 1.7 Lipase 26 - Rads (name of study) CT angiogram of the head and neck Radiology: Final report received, See rad report (Impression: CT head negative study no evidence of hemorrhage, infarction, space occupying lesion or acute intercranial pathology. CT angiogram had normal examinationCT angiogram neck. No evidence of dissection or stenosis in the extracranial carotid or vertebral arteries) PD MEDICAL DECISION MAKING - ED course ED course: On reevaluation the patient is resting comfortably and her symptoms are under control. The patient's pain has significantly reduced. The patient's symptoms more likely represent a complex migraine. Since, the patient's improving and her workup thus far has not shown any significant abnormality she appears appropriate for discharge home and further workup as an outpatient. I discussed the findings with the patient and also the incidental finding seen on her thyroid. I recommended follow-up with primary care this coming week so that they can order an outpatient MRI, echocardiogram, carotid Dopplers and ultrasound of the thyroid. The patient understands and agrees to the plan.I discussed warning signs and recommended returning to the emergency department immediately for worsening or any concerns. - Sepsis Event Vital Signs: Vital Signs - 24 hr 02/07/18 02/07/18 02/07/18 16:42 19:15 20:13 Temperature 36.4 C L Heart Rate 56 L 51 L Respiratory 18 16 17 Rate Blood Pressure 145/66 H 121/70 O2 Saturation 97 95 Oxygen O2 Source Room air Departure - Departure Disposition: 01 Home, Self Care Clinical Impression: Pain of right side of body Headache Qualifiers: Headache type: other headache syndrome Qualified Code(s): G44.89 - Other headache syndrome Condition: Good Instructions: ED Cephalgia Unspecified Follow-Up: Deidra Jimenez DNP [Primary Care Provider] - Within 3 Days (Please ask your primary care physician to order an outpatient MRI of your brain, carotid Dopplers and a echocardiogram to further evaluate your symptoms) Comments: He is return to the emergency department for worsening symptoms or any concerns
== END 2018-02-07 21:07 | disposition home or self-care (01) ==
LOC: ED 16:39
DX: G44.89 Other headache syndrome (principal); R52 Pain, unspecified; R00.1 Bradycardia, unspecified; F17.200 Nicotine dependence, unspecified, uncomplicated
CPT/HCPCS: 36415; 70496; 70498; 80053; 83690; 84484; 85025; 93005; 96361; 96372; 96374; 96375; 99284; A9270; J1200; J2765; Q9967

== ENCOUNTER 2018-02-10 08:00 | Outpatient (CLI) | payer MEDICAID ==
[2018-02-10 19:12] LABS: THYROID STIMULATING HORMONE 0.31 uIU/mL (0.34-5.60)
[2018-02-10 19:14] LABS: FREE T4 (FREE THYROXINE) 1.16 ng/dL (0.58-1.64)
[2018-02-12 12:57] LABS: THYROID PEROXIDASE ANTIBODIES <1 IU/mL (<9)
== END 2018-02-10 08:01 | disposition home or self-care (01) ==
LOC: LAB.N 08:00
PROVIDERS: ATTEND Nurse Practitioner
DX: E04.1 Nontoxic single thyroid nodule (principal); R13.10 Dysphagia, unspecified
CPT/HCPCS: 36415; 84439; 84443; 84481; 86376; 86800

== ENCOUNTER 2018-03-03 06:17 | Day surgery (SDC) | payer MEDICAID ==
[2018-03-03] MEDS ORDERED: ceFAZolin 2 GM/50 ML 2 GM/50 ML BAG IV ONE ×2 (06:26→08:14)
[2018-03-03] MEDS ORDERED: IPRATROPIUM/ALBUTEROL 3 ML NEB INH ONE (06:27)
[2018-03-03] MEDS ORDERED: LACTATED RINGERS 1,000 ML IV ONE ×2 (06:34→09:38)
[2018-03-03] MEDS ORDERED: BUPIVACAINE 0.5%-EPI 1:200000 PF 30 ML VIAL ONE (06:56)
[2018-03-03] MEDS ORDERED: ceFAZolin 1 GM VIAL ONE (07:04)
[2018-03-03] MEDS ORDERED: LIDOCAINE-MPF 1% 30 ML VIAL ONE (07:13)
[2018-03-03] MEDS ORDERED: LIDOCAINE-MPF 1% 2 ML AMP SUBQ ONE ×2 (08:04)
[2018-03-03] MEDS ORDERED: BUPIVACAINE 0.5%-EPI 1:200000 PF 30 ML VIAL SUBQ ONE ×2 (08:04)
[2018-03-03] MEDS ORDERED: PROPOFOL 200 MG/20 ML VIAL IVP ONE (08:14)
[2018-03-03] MEDS ORDERED: LIDOCAINE-MPF 2% 5 ML VIAL IM ONE (08:14)
[2018-03-03] MEDS ORDERED: ePHEDrine 50 MG/ML VIAL IVP ONE (08:14)
[2018-03-03] MEDS ORDERED: ACETAMINOPHEN 1,000 MG/100 ML 100 ML IV ONE (08:14)
[2018-03-03] MEDS ORDERED: fentaNYL 100 MCG/2 ML VIAL IVP ONE (08:14)
[2018-03-03] MEDS ORDERED: GLYCOPYRROLATE 1 MG/5 ML VIAL IVP ONE (08:14)
[2018-03-03] MEDS: HYDROmorphone 1 MG/ML CARPUJECT ONE ×2 (08:50→08:55)
--- NOTE | 2018-03-03 09:22 | OPERATIVE REPORT ---
DATE OF SERVICE: 03/03/2018 Physician: Fernando Daniel MD PREOPERATIVE DIAGNOSIS: Symptomatic umbilical/ventral incisional hernia. POSTOPERATIVE DIAGNOSIS: Symptomatic umbilical/ventral incisional hernia. PROCEDURE PERFORMED: Open repair of same. ANESTHESIA: General laryngeal mask anesthesia plus local by Dr. Landeros. SURGEON: Fernando Daniel MD ESTIMATED BLOOD LOSS: Minimal. MARINE SCIENTIST: None. COMPLICATIONS: None. FINDINGS: A 1 cm umbilical incisional fascial defect was present with omentum present within the her jez sac. INDICATIONS: The patient is a 52-year-old woman with a history of an increasingly painful and tende r reducible umbilical bulge. She is status post prior laparoscopic cholecystectomy, and examination revealed findings consistent with a small incisional hernia at the umbilical laparoscopy port site. She was advised to undergo repair. TECHNIQUE: After informed consent, the patient was taken to the operating room where she was placed under general laryngeal mask anesthesia by Dr. Landeros. Preoperative preparation included application of sequential calf compression boots, and administration of 2 grams of cefazolin intravenously withi n an hour of the incision. The periumbilical region was prepared with ChloraPrep solution and draped in the usual sterile fashion. A 50:50 combination of 1% lidocaine plain and 0.5% Marcaine was used for local infiltration anesthesia, 36 mL of the mixture was used. Curvilinear transverse infraumbilical incision was made approximately 4 cm in length, and carried magui n through subcutaneous tissues. The umbilical dermis was dissected off of the underlying hernia sac, which was mobilized circumferentially down to the anterior fascia. The hernia sac was entered, its contents reduced. The hernia sac was excised and discarded. Hemostasis achieved with electrocautery and 2-0 Vicryl ties. The fascial edges were freshened up and mobilized circumferentially, and reapp roximated transversely with 3-0 Ethibond sutures repairing the 1 cm fascial defect transversely. After hemostasis was assured, the wound was irrigated with antibiotic solution, following which wound closure was accomplished in layers using interrupted 2-0 Vicryl reapproximating the umbilical dermis to the anterior fascia, and reapproximating the deep subcutaneous fat, followed by 3-0 Vicryl to dale pproximate the superficial subcutaneous fat, followed by 4-0 Monocryl subcuticular skin closure and D ermabond. Anesthesia was terminated. The patient was transferred to the recovery room in satisfacto ry condition. Sponge and needle counts were correct x2, and no drains were used. TD: 03/03/2018 09:14
[2018-03-03] MEDS ORDERED: KETOROLAC 30 MG/ML VIAL ONE (09:39)
[2018-03-03 09:58] VITALS: BP 125/61
== END 2018-03-03 06:18 | disposition home or self-care (01) ==
LOC: SDS 06:17
PROVIDERS: ATTEND Internal Medicine Gastroenterology
PROC: 0WQF0ZZ Repair Abdominal Wall, Open Approach (ICD-10-PCS; principal; 2018-03-03 07:30)
DX: K43.2 Incisional hernia without obstruction or gangrene (principal); J44.9 Chronic obstructive pulmonary disease, unspecified; F41.9 Anxiety disorder, unspecified; F17.210 Nicotine dependence, cigarettes, uncomplicated
CPT/HCPCS: 49560; J0131; J0690; J1170; J7120

== ENCOUNTER 2018-06-23 08:24 | Outpatient (CLI) | payer MEDICAID ==
[2018-06-23] MEDS ORDERED: IOVERSOL 320 100 ML VIAL IVP ONE (08:31)
[2018-06-23] MEDS ORDERED: IOVERSOL 320 50 ML VIAL ONE (08:31)
--- NOTE | 2018-06-23 14:39 | CT Report ---
Reason: PERIUMBILICAL PAIN, FLANK PAIN, LEFT Procedure Date: 06/23/2018 Accession Number: [id number] / [id number] Procedure: CT - Abdomen/Pelvis W/ CPT Code: FULL RESULT: EXAM: CT ABDOMEN AND PELVIS EXAM DATE: 06/23/2018 11:15 AM. CLINICAL HISTORY: Periumbilical pain, flank pain, left. COMPARISONS: ABDOMEN/PELVIS W/ 08/03/2017 4:29 PM. TECHNIQUE: Routine helical CT imaging was performed through the abdomen and pelvis. IV contrast: ISOVUE 320 90mL. Enteric contrast: No. Reconstructions: Coronal and sagittal. In accordance with CT protocol optimization, one or more of the following dose reduction techniques were utilized for this exam: automated exposure control, adjustment of mA and/or KV based on patient size, or use of iterative reconstructive technique. FINDINGS: Lung Bases: Unremarkable. Liver: Normal. No masses. Gallbladder/Bile Ducts: Status post cholecystectomy. Spleen: Normal. Pancreas: Normal. Adrenal Glands: Normal. Kidneys: Normal. No masses or hydronephrosis. Peritoneal Cavity/Bowel: Normal. No free fluid, free air or adenopathy. No masses or acute inflammatory process. The appendix is well visualized and normal. Pelvic Organs: Normal. The bladder and visualized pelvic organs are within normal limits. Vasculature: No aneurysms or other significant abnormality. Bones: No significant abnormality. Other: There is fat stranding in the soft tissues of the umbilicus with a 7 mm area of hyperenhancement with the central dot sign, image 50 series 3. IMPRESSION: Question of infarction of a 7 mm sized piece of omental fat through abdominal wall defect at the umbilicus. RAD[facility]
[2018-06-25] MEDS ORDERED: IOVERSOL 320 100 ML VIAL IVP ONE (08:33)
[2018-06-25] MEDS ORDERED: IOVERSOL 320 50 ML VIAL PO ONE (08:33)
== END 2018-06-23 08:25 | disposition home or self-care (01) ==
LOC: DI 08:24
PROVIDERS: ATTEND Internal Medicine Gastroenterology
DX: R10.33 Periumbilical pain (principal); R10.9 Unspecified abdominal pain
CPT/HCPCS: 74177; Q9967

== ENCOUNTER 2018-06-26 06:19 | Day surgery (SDC) | payer MEDICAID ==
[2018-06-26] MEDS ORDERED: TRIAMCIN/MOXIFLOX OPHTHALMIC 0.6 ML VIAL IO ONE (06:51)
[2018-06-26] MEDS ORDERED: LACTATED RINGERS 1,000 ML IV ONE (06:51)
[2018-06-26] MEDS ORDERED: BRIMONIDINE 0.2% OPHTH DROPS 5 ML ONE (06:51)
[2018-06-26] MEDS ORDERED: EPINEPHrine 1 MG/ML AMP ONE (06:51)
[2018-06-26] MEDS ORDERED: VANCOMYCIN OPHTHALMI 8MG/0.8ML 8 MG/0.8 ML SYRINGE IO ONE (06:52)
[2018-06-26] MEDS ORDERED: BSS/LIDOCAINE/EPINEPHRINE 1 ML SYRINGE ONE (06:52)
[2018-06-26] MEDS ORDERED: TIMOLOL 0.5% OPHTH DROPS ONE (06:52)
[2018-06-26] MEDS ORDERED: fentaNYL 250 MCG/5 ML VIAL IVP ONE (07:33)
[2018-06-26] MEDS ORDERED: MIDAZOLAM 2 MG/2 ML VIAL IVP ONE (07:33)
[2018-06-26 08:38] VITALS: BP 110/51
== END 2018-06-26 06:20 | disposition home or self-care (01) ==
LOC: SDS 06:19
PROVIDERS: ATTEND Internal Medicine Gastroenterology
PROC: 0DBN8ZZ Excision of Sigmoid Colon, Via Natural or Artificial Opening Endoscopic (ICD-10-PCS; principal; 2018-06-26 07:30)
DX: Z12.11 Encounter for screening for malignant neoplasm of colon (principal); K63.5 Polyp of colon; K57.30 Diverticulosis of large intestine without perforation or abscess without bleeding; Z72.0 Tobacco use; Z86.010 Personal history of colon polyps
CPT/HCPCS: 45380; A9270; J3010; J7120

== ENCOUNTER 2018-07-29 16:02 | Outpatient (CLI) | payer MEDICAID ==
--- NOTE | 2018-07-30 06:55 | XRAY Report ---
Reason: JOINT PAIN Procedure Date: 07/29/2018 Accession Number: [id number] / [id number] Procedure: XRN - Shoulder 2 View RT CPT Code: FULL RESULT: EXAM: RIGHT SHOULDER RADIOGRAPHY EXAM DATE: 07/29/2018 04:15 PM. CLINICAL HISTORY: JOINT PAIN. COMPARISON: None. TECHNIQUE: 2 views. FINDINGS: Bones: Normal. No fracture or bone lesion. Joints: The glenohumeral and acromioclavicular joints are normal. Soft tissues: The visualized hemithorax is unremarkable. No soft tissue swelling. IMPRESSION: Negative right shoulder radiography. RADIA
== END 2018-07-29 16:03 | disposition home or self-care (01) ==
LOC: DI.N 16:02
PROVIDERS: ATTEND Nurse Practitioner
DX: M25.511 Pain in right shoulder (principal)

== ENCOUNTER 2018-09-22 15:43 | Emergency (ER) | payer MEDICAID ==
[2018-09-22] MEDS ORDERED: LIDOCAINE VISCOUS 2% 15 ML UDC MM STA (16:27)
[2018-09-22] MEDS ORDERED: MAG HYDROX/AL HYDROX/SIMETH 30 ML UDC PO STA (16:27)
--- NOTE | 2018-09-22 16:29 | ED Physician Documentation ---
PD HPI CHEST PAIN - Stated complaint Stated Complaint: DVT RULE OUT - Chief complaint Chief Complaint: Ext Problem - History obtained from History obtained from: Patient - History of Present Illness Timing - onset: How many days ago (she has noted Pain in the left inner thigh and behind the left knee for the last several days. She has been having some "heartburn" for several days to week gets worse with laying flat and after eating. She has tried antacids without much improvement. It does not hurt to breathe. She denies shortness of breath. She was seen in the clinic today and referred up here for evaluation for possible blood clot given the tenderness in the popliteal and thigh area.) Timing - onset during: No: Exertion Timing - details: Gradual onset Quality: Other (heartburn feeling, per patient). No: Pressure, Tightness Location: Substernal, Epigastric Radiation: No: Jaw, Neck, Back Worsened by: Inspiration. No: Eating Associated symptoms: Shortness of air. No: Nausea, Vomiting, Feeling faint / dizzy Similar symptoms before: Has not had sx before Recently seen: Clinic (today and referred to ER.) Review of Systems Constitutional: denies: Fever, Chills Nose: denies: Rhinorrhea / runny nose, Congestion Throat: denies: Sore throat Cardiac: reports: Chest pain / pressure. denies: Palpitations, Pedal edema, Calf pain (but has pain behind knee and along medial left thigh. No leg edema.) Respiratory: reports: Dyspnea. 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: Hysterectomy HEENT: Rhinoplasty Derm: Skin cancer surgery - Present Medications Home Medications: Ambulatory Orders Medication Instructions Recorded Confirmed FLUoxetine [PROzac] 20 mg PO BID 02/02/18 06/25/18 RX: Gabapentin 100 mg PO DAILY 02/07/18 06/25/18 Topiramate [Topamax] 25 mg PO DAILY 02/28/18 06/25/18 RX: Albuterol Sulf [Ventolin Hfa 2 puffs PO DAILY PRN 03/03/18 06/25/18 Inhaler] hydrOXYzine pamoate [Hydroxyzine 25 mg PO DAILY 03/03/18 06/25/18 Pamoate] diphenhydrAMINE [Benadryl] 50 mg PO HS 06/25/18 06/25/18 RX: Naproxen 375 mg PO BID #20 tablet 09/22/18 - Allergies Allergies/Adverse Reactions: Allergies Allergy/AdvReac Type Severity Reaction Status Date / Time Penicillins Allergy Intermediate Hives Verified 09/22/18 16:06 adhesive tape Allergy Rash Verified 09/22/18 16:06 latex Allergy Unknown Verified 09/22/18 16:06 ondansetron AdvReac Headache Verified 09/22/18 16:06 - Social History Does the pt smoke?: Yes Smoking Status: Current every day smoker Does the pt drink ETOH?: No Does the pt have substance abuse?: No - Immunizations Immunizations are current?: Yes - POLST Patient has POLST: No POLST Status: Full Code PD ED PE NORMAL - Vitals Vital signs reviewed: Yes - General General: Alert and oriented X 3, No acute distress, Well developed/nourished - Neck Neck: Supple, no meningeal sign, No adenopathy - Cardiac Cardiac: RRR, No murmur - Respiratory Respiratory: Clear bilaterally, Other (no chestwall tenderness) - Abdomen Abdomen: Soft, Non tender - Back Back: No CVA TTP - Derm Derm: Normal color, Warm and dry - Extremities Extremities: No tenderness to palpate, Normal ROM s pain, No edema, No calf tenderness / cord (but is tender in popliteal area and along medial left thigh, linearly and with some faint redness/bruising color running along area of vein, with slight firmness and tender. No skin sores nor rash.) - Neuro Neuro: Alert and oriented X 3, No motor deficit, Normal speech Results - Vitals Vitals: Oxygen O2 Source Room air - Labs Labs: Laboratory Tests 09/22/18 09/22/18 09/22/18 16:51 16:51 16:51 WBC 8.3 RBC 4.60 Hgb 13.0 Hct 39.3 MCV 85.5 MCH 28.2 MCHC 33.0 RDW 14.7 Plt Count 253 MPV 8.5 Neut # (Auto) 3.7 Lymph # (Auto) 3.9 H [place] # (Auto) 0.5 Eos # (Auto) 0.1 Baso # (Auto) 0.1 Absolute Nucleated RBC 0.00 Nucleated RBC % 0.0 Sodium 143 Potassium 3.4 L Chloride 107 Carbon Dioxide 27 Anion Gap 9.0 BUN 9 Creatinine 0.7 Estimated GFR (MDRD) 88 L Glucose 93 Calcium 8.8 Troponin I < 0.04 - Rads (name of study) Duplex left leg Radiology: Prelim report reviewed, Final report received (no DVTs) PD MEDICAL DECISION MAKING - ED course Complexity details: re-evaluated patient (no real change with GI cocktail. ), considered differential (U/S okay. She has tenderness and redness superficially along vein. ), d/w patient Departure - Departure Disposition: 01 Home, Self Care Clinical Impression: Superficial phlebitis Chest pain Qualifiers: Chest pain type: precordial pain Qualified Code(s): R07.2 - Precordial pain Condition: Stable Record reviewed to determine appropriate education?: Yes Instructions: ED Phlebitis Superficial Follow-Up: Deidra Jimenez DNP [Primary Care Provider] - Prescriptions: RX: Naproxen 375 mg PO BID #20 tablet Comments: There are no signs of blood clots on your ultrasound. The area of tenderness on the thigh and behind the knee seem like in inflammation of the surface veins (superficial phlebitis). This is treated with warmth and warm towels to the area to soften up the alexander of the blood vessels and also anti-inflammatory such as naproxen or ibuprofen. Recheck if not improved over the next few days. Discharge Date/Time: 09/22/18 19:04
[2018-09-22 16:57] LABS: BASOPHILS # (AUTO) 0.1 10^3/uL (0.0-0.1); BASOPHILS % (AUTO) 1.3 %; EOSINOPHILS # (AUTO) 0.1 10^3/uL (0.0-0.7); EOSINOPHILS % (AUTO) 1.1 %; LYMPHOCYTES # (AUTO) 3.9 10^3/uL (1.5-3.5); LYMPHOCYTES % (AUTO) 46.9 %; MEAN CORPUSCULAR HEMOGLOBIN 28.2 pg (27.0-31.0); MEAN CORPUSCULAR VOLUME 85.5 fL (81.0-99.0); MEAN PLATELET VOLUME 8.5 fL (7.9-10.8); MONOCYTES # (AUTO) 0.5 10^3/uL (0.0-1.0); MONOCYTES % (AUTO) 6.5 %; NEUTROPHILS # (AUTO) 3.7 10^3/uL (1.5-6.6); NEUTROPHILS % (AUTO) 44.2 %; PLT - PLATELET COUNT 253 10^3/uL (130-450); RED CELL DISTRIBUTION WIDTH 14.7 % (12.0-15.0); WHITE BLOOD COUNT 8.3 x10^3/uL (4.8-10.8)
--- NOTE | 2018-09-22 18:51 | Ultrasound Report ---
Reason: pain left lower leg/back of knee Procedure Date: 09/22/2018 Accession Number: [id number] / [id number] Procedure: US - Duplex Ext Veins Left CPT Code: FULL RESULT: EXAM: LEFT LOWER EXTREMITY VENOUS ULTRASOUND EXAM DATE: 09/22/2018 06:05 PM. CLINICAL HISTORY: Pain left lower leg/back of knee. COMPARISON: None. TECHNIQUE: Real-time sonographic vascular imaging was performed by the legal librarian through the lower extremity utilizing both color-flow and Doppler spectral analysis. Multiple high school admissions representative static images were saved for review. FINDINGS: Common Femoral Vein (CFV): Normal. CFV-GSV Junction: Normal. Profunda Femoral Vein (PFV): Normal. Femoral Vein (FV) Prox: Normal. Femoral Vein (FV) Mid: Normal. Femoral Vein (FV) Dist: Normal. Popliteal Vein: Normal. Posterior Tibial Veins: Normal. Peroneal Veins: Normal. Contralateral Side CFV: Normal. Other: None. IMPRESSION: No evidence for deep venous thrombosis. RAD[facility]
[2018-09-22] MEDS ORDERED: NAPROXEN 250 MG TABLET PO STA (18:52)
[2018-09-22 19:02] VITALS: BP 132/88
[2018-09-22 19:02] LABS: CREATININE 0.7 mg/dL (0.4-1.0)
[2018-09-22 19:03] LABS: CALCIUM 8.8 mg/dL (8.5-10.3)
== END 2018-09-22 19:04 | disposition home or self-care (01) ==
LOC: ED 15:43
DX: I80.02 Phlebitis and thrombophlebitis of superficial vessels of left lower extremity (principal); R07.2 Precordial pain; R00.1 Bradycardia, unspecified; F17.200 Nicotine dependence, unspecified, uncomplicated
CPT/HCPCS: 36415; 80048; 84484; 85025; 93005; 93971; 99283; A9270

== ENCOUNTER 2018-10-19 17:15 | Emergency (ER) | payer MEDICAID ==
--- NOTE | 2018-10-19 18:12 | XRAY Report ---
Reason: chest pain with breathing Procedure Date: 10/19/2018 Accession Number: [id number] / [id number] Procedure: XR - Chest 2 View X-Ray CPT Code: 10750 FULL RESULT: EXAM: CHEST RADIOGRAPHY EXAM DATE: 10/19/2018 05:51 PM. CLINICAL HISTORY: Chest pain with breathing. COMPARISON: SHOULDER 2 VIEW RT 07/29/2018 4:19 PM. TECHNIQUE: 2 views. FINDINGS: Lungs/Pleura: No focal opacities evident. No pleural effusion. No pneumothorax. Normal volumes. Mediastinum: Heart and mediastinal contours are unremarkable. Other: None. IMPRESSION: Negative chest RADIA
--- NOTE | 2018-10-19 18:16 | ED Physician Documentation ---
History of Present Illness - Stated complaint Stated Complaint: SOA/TORSO PX - Chief complaint Chief Complaint: General - History obtained from History obtained from: Patient - Additonal information Additional information: Patient is a 53-year-old female presenting with anterior and posterior chest discomfort that extends into both shoulders and is associated with mild shortness of breath and a dry cough over the past several weeks. Patient has a history of superficial thrombophlebitis, but no known DVT. Patient was seen within the last several weeks in this ED with negative lower extremity ult rasounds. Patient also denies any new calf pain, swelling, bruising, or other swollen veins. Patient also denies significant pain with breathing and describes discomfort is more of musculoskeletal soreness. Patient denies fever, URI symptoms including nasal congestion or rhinorrhea and sore throat.Patient also denies any other inciting incident or trauma that would have led to rib injury. Patient denies any particular improving or worsening factors to her symptoms. Review of Systems Constitutional: denies: Fever Cardiac: reports: Chest pain / pressure Respiratory: reports: Dyspnea, Cough PD PAST MEDICAL HISTORY - Past Medical History Cardiovascular: None Respiratory: Asthma Neuro: Migraines GI: Other HEENT: None Psych: Depression, Anxiety, Post traumatic stress disorder Musculoskeletal: Osteoarthritis, Chronic back pain - Past Surgical History Past Surgical History: Yes General: Cholecystectomy, Colonoscopy, EGD /[employer]: Hysterectomy HEENT: Rhinoplasty Derm: Skin cancer surgery - Present Medications Home Medications: Ambulatory Orders Medication Instructions Recorded Confirmed FLUoxetine [PROzac] 20 mg PO BID 02/02/18 06/25/18 Gabapentin 100 mg PO DAILY 02/07/18 06/25/18 Topiramate [Topamax] 25 mg PO DAILY 02/28/18 06/25/18 Albuterol Sulf [Ventolin Hfa 2 puffs PO DAILY PRN 03/03/18 06/25/18 Inhaler] hydrOXYzine pamoate [Hydroxyzine 25 mg PO DAILY 03/03/18 06/25/18 Pamoate] diphenhydrAMINE [Benadryl] 50 mg PO HS 06/25/18 06/25/18 Naproxen 375 mg PO BID #20 tablet 09/22/18 - Allergies Allergies/Adverse Reactions: Allergies Allergy/AdvReac Type Severity Reaction Status Date / Time Penicillins Allergy Intermediate Hives Verified 10/19/18 18:19 adhesive tape Allergy Rash Verified 10/19/18 18:19 latex Allergy Unknown Verified 10/19/18 18:19 ondansetron AdvReac Headache Verified 10/19/18 18:19 - Social History Does the pt smoke?: Yes Smoking Status: Current every day smoker Does the pt drink ETOH?: No Does the pt have substance abuse?: No - Immunizations Immunizations are current?: Yes - POLST Patient has POLST: No POLST Status: Full Code PD ED PE NORMAL - General General: Alert and oriented X 3, No acute distress, Well developed/nourished, Other (Smells of tobacco) - HEENT HEENT: Atraumatic - Cardiac Cardiac: RRR, No murmur - Respiratory Respiratory: No respiratory distress, Clear bilaterally - Abdomen Abdomen: Normal bowel sounds, Soft, Non tender, Non distended - Derm Derm: Normal color, Warm and dry, No rash - Extremities Extremities: No deformity, No tenderness to palpate, No edema, No calf tenderness / cord - Neuro Neuro: Alert and oriented X 3, No motor deficit, No sensory deficit - Psych Psych: Normal mood, Normal affect Results - Vitals Vitals: Vital Signs - 24 hr 10/19/18 17:34 Temperature 36.9 C Heart Rate 68 Respiratory 16 Rate Blood Pressure 122/75 O2 Saturation 99 Oxygen O2 Source Room air - EKG (time done) 1746 Rate: Rate (enter#) (65) Rhythm: NSR - Labs Labs: Laboratory Tests 10/19/18 10/19/18 10/19/18 18:30 18:30 18:30 WBC 9.6 RBC 4.77 Hgb 13.2 Hct 40.3 MCV 84.5 MCH 27.7 MCHC 32.8 RDW 13.9 Plt Count 281 MPV 8.6 Neut # (Auto) 5.3 Lymph # (Auto) 3.5 [place] # (Auto) 0.6 Eos # (Auto) 0.1 Baso # (Auto) 0.1 Absolute Nucleated RBC 0.00 Nucleated RBC % 0.0 Sodium 141 Potassium 3.8 Chloride 104 Carbon Dioxide 28 Anion Gap 9.0 BUN 7 Creatinine 0.5 Estimated GFR (MDRD) 129 Glucose 92 Calcium 9.0 Troponin I < 0.04 PD MEDICAL DECISION MAKING - ED course Complexity details: reviewed old records, reviewed results, re-evaluated patient, considered differential, d/w patient ED course: Patient presenting with several weeks of chest discomfort and cough. Patient has history of superficial thrombophlebitis and received ultrasounds in this ED several weeks ago that did not find evidence of DVT. Patient does not have history of DVT and can be ruled out by PERC criteria. Have lower suspicion for ACS, myocardial infarction, unstable angina, particularly given symptomatology and duration of symptoms, but obtain EKG and troponin. Both returned unremarkable. Do not feel patient requires repeat troponin at this time. Remaining a screening lab work also unremarkable. Chest x-ray did not find evidence of pneumonia, rib fracture, or other acute pathology. Advised patient of results and recommendations and feel that she is otherwise safe to discharge home. Discussed supportive cares, return precautions, appropriate follow-up. Patient voiced understanding and is comfortable with discharge plan. Departure - Departure Disposition: 01 Home, Self Care Clinical Impression: Musculoskeletal chest pain Condition: Good Instructions: ED Strain Chest Wall Follow-Up: Deidra Jimenez DNP [Primary Care Provider] - Within 3 Days Comments: Please continue any home medications as previously prescribed. Recommend anti- inflammatories to address chest discomfort such as ibuprofen/Tylenol. Please follow-up with primary care physician in next 2-3 days and return to ED sooner if experience worsening symptoms or other concerns.
[2018-10-19 18:39] LABS: BASOPHILS # (AUTO) 0.1 10^3/uL (0.0-0.1); EOSINOPHILS # (AUTO) 0.1 10^3/uL (0.0-0.7); EOSINOPHILS % (AUTO) 1.5 %; HGB - HEMOGLOBIN 13.2 g/dL (12.0-16.0); LYMPHOCYTES # (AUTO) 3.5 10^3/uL (1.5-3.5); LYMPHOCYTES % (AUTO) 36.7 %; MEAN CORPUSCULAR HEMOGLOBIN 27.7 pg (27.0-31.0); MEAN CORPUSCULAR HGB CONC 32.8 g/dL (32.0-36.0); MEAN CORPUSCULAR VOLUME 84.5 fL (81.0-99.0); MEAN PLATELET VOLUME 8.6 fL (7.9-10.8); MONOCYTES # (AUTO) 0.6 10^3/uL (0.0-1.0); MONOCYTES % (AUTO) 5.9 %; NEUTROPHILS # (AUTO) 5.3 10^3/uL (1.5-6.6); NEUTROPHILS % (AUTO) 54.9 %; PLT - PLATELET COUNT 281 10^3/uL (130-450); RED BLOOD COUNT 4.77 10^6/uL (4.20-5.40); RED CELL DISTRIBUTION WIDTH 13.9 % (12.0-15.0); WHITE BLOOD COUNT 9.6 x10^3/uL (4.8-10.8)
[2018-10-19 18:47] LABS: CREATININE 0.5 mg/dL (0.4-1.0)
[2018-10-19 19:28] VITALS: BP 131/58
== END 2018-10-19 19:28 | disposition home or self-care (01) ==
LOC: ED 17:15
DX: R07.89 Other chest pain (principal); J45.909 Unspecified asthma, uncomplicated; F17.200 Nicotine dependence, unspecified, uncomplicated; Z86.72 Personal history of thrombophlebitis
CPT/HCPCS: 36415; 71046; 80048; 84484; 85025; 93005; 99283

== ENCOUNTER 2018-10-31 08:00 | Outpatient (CLI) | payer MEDICAID ==
[2018-10-31 12:37] LABS: BASOPHILS # (AUTO) 0.1 10^3/uL (0.0-0.1); BASOPHILS % (AUTO) 1.1 %; EOSINOPHILS # (AUTO) 0.1 10^3/uL (0.0-0.7); HGB - HEMOGLOBIN 12.8 g/dL (12.0-16.0); LYMPHOCYTES # (AUTO) 2.8 10^3/uL (1.5-3.5); LYMPHOCYTES % (AUTO) 34.6 %; MEAN CORPUSCULAR HEMOGLOBIN 27.6 pg (27.0-31.0); MEAN CORPUSCULAR HGB CONC 32.9 g/dL (32.0-36.0); MONOCYTES # (AUTO) 0.5 10^3/uL (0.0-1.0); MONOCYTES % (AUTO) 5.8 %; NEUTROPHILS # (AUTO) 4.7 10^3/uL (1.5-6.6); NEUTROPHILS % (AUTO) 57.5 %; PLT - PLATELET COUNT 276 10^3/uL (130-450); RED BLOOD COUNT 4.64 10^6/uL (4.20-5.40); RED CELL DISTRIBUTION WIDTH 14.2 % (12.0-15.0); WHITE BLOOD COUNT 8.1 x10^3/uL (4.8-10.8)
[2018-10-31 13:07] LABS: ALBUMIN 4.1 g/dL (3.2-5.5); ALBUMIN/GLOBULIN RATIO 1.5 (1.0-2.2); ALKALINE PHOSPHATASE 64 IU/L (42-121); ALT ALANINE AMINOTRANSFERASE 19 IU/L (10-60); AST ASPARTATE AMINOTRANSFERASE 25 IU/L (10-42); BILIRUBIN,TOTAL 0.5 mg/dL (0.2-1.0); BUN - BLOOD UREA NITROGEN 10 mg/dL (6-20); CALCIUM 9.4 mg/dL (8.5-10.3); CARBON DIOXIDE - CO2 27 mmol/L (21-32); CHLORIDE 105 mmol/L (101-111); CREATININE 0.6 mg/dL (0.4-1.0); GFR - MDRD 105 (>89); GLUCOSE 128 mg/dL (70-100); SODIUM 141 mmol/L (135-145); TOTAL PROTEIN 6.8 g/dL (6.7-8.2); URIC ACID 5.1 mg/dL (2.6-7.2)
[2018-10-31 13:10] LABS: CRP - C-REACTIVE PROTEIN < 1.0 mg/dL (0-1.0)
[2018-10-31 13:26] LABS: RHEUMATOID FACTOR NEGATIVE (Negative)
[2018-11-03 21:06] LABS: ANA SCREEN NEGATIVE (NEGATIVE)
== END 2018-10-31 23:59 | disposition home or self-care (01) ==
LOC: LAB.N 08:00
PROVIDERS: ATTEND Nurse Practitioner
DX: R52 Pain, unspecified (principal); R53.83 Other fatigue
CPT/HCPCS: 36415; 80053; 84443; 84550; 85025; 85651; 86038; 86140; 86200; 86430

== ENCOUNTER 2018-11-27 09:38 | Outpatient (CLI) | payer MEDICAID ==
--- NOTE | 2018-11-27 11:04 | XRAY Report ---
Reason: CHONIC HIP PAIN Procedure Date: 11/27/2018 Accession Number: [id number] / [id number] Procedure: XRN - Hips 2V BILAT CPT Code: FULL RESULT: EXAM: BILATERAL HIP RADIOGRAPHY EXAM DATE: 11/27/2018 10:03 AM. CLINICAL HISTORY: Chronic hip pain. COMPARISON: 04/29/2009 9:21 AM. TECHNIQUE: 2 views each. FINDINGS: Bones: Normal. No fractures or bone lesion. Right Hip: Normal. No dislocation. The hip joint space is preserved. Left Hip: No dislocation. The hip joint space is relatively. Soft Tissues: Normal. No soft tissue swelling. IMPRESSION: Relatively preserved hip joint spaces. RADIA
== END 2018-11-27 09:39 | disposition home or self-care (01) ==
LOC: DI.N 09:38
PROVIDERS: ATTEND Family Medicine
DX: M25.559 Pain in unspecified hip (principal)
CPT/HCPCS: 73521

== ENCOUNTER 2019-02-08 12:31 | Emergency (ER) | payer MEDICAID ==
[2019-02-08 12:40] VITALS: BP 146/96
--- NOTE | 2019-02-08 14:08 | ED Physician Documentation ---
History of Present Illness - Stated complaint Stated Complaint: NECK PX - Chief complaint Chief Complaint: General - History obtained from History obtained from: Patient - Additonal information Additional information: Patient is a 53-year-old female presenting with neck pain. Unable to obtain further HPI, review of systems, exam. 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 HEENT: Rhinoplasty Derm: Skin cancer surgery - Present Medications Home Medications: Ambulatory Orders Medication Instructions Recorded Confirmed FLUoxetine [PROzac] 20 mg PO BID 02/02/18 06/25/18 RX: Gabapentin 100 mg PO DAILY 02/07/18 06/25/18 Topiramate [Topamax] 25 mg PO DAILY 02/28/18 06/25/18 RX: Albuterol Sulf [Ventolin Hfa 2 puffs PO DAILY PRN 03/03/18 06/25/18 Inhaler] hydrOXYzine pamoate [Hydroxyzine 25 mg PO DAILY 03/03/18 06/25/18 Pamoate] diphenhydrAMINE [Benadryl] 50 mg PO HS 06/25/18 06/25/18 RX: Naproxen 375 mg PO BID #20 tablet 09/22/18 - Allergies Allergies/Adverse Reactions: Allergies Allergy/AdvReac Type Severity Reaction Status Date / Time Penicillins Allergy Intermediate Hives Verified 02/08/19 12:40 adhesive tape Allergy Rash Verified 02/08/19 12:40 latex Allergy Unknown Verified 02/08/19 12:40 ondansetron AdvReac Headache Verified 02/08/19 12:40 - Social History Does the pt smoke?: Yes Smoking Status: Current every day smoker Does the pt drink ETOH?: No Does the pt have substance abuse?: No - Immunizations Immunizations are current?: Yes - POLST Patient has POLST: No POLST Status: Full Code PD ED PE NORMAL - Vitals Vital signs reviewed: Yes - Free text exam Free text exam: Unable to obtain fully. Left rotation of neck with ease of motion in all directions on brief exam. Results - Vitals Vitals: Vital Signs - 24 hr 02/08/19 12:36 Temperature 36.0 C L Heart Rate 71 Respiratory 19 Rate Blood Pressure 146/96 H O2 Saturation 98 Oxygen O2 Source Room air PD MEDICAL DECISION MAKING - ED course Complexity details: considered differential, d/w patient ED course: Physician waiting in room upon patient arrival and attempted to discuss patient's neck pain with patient. Physician remarked that patient's neck appears to be rotated to the left which made patient extremely hostile. At that time, physician handed an EKG regarding another patient and given patient's hostility, physician requested that patient settle in and physician would be back to speak with her further shortly. Patient then started yelling and becoming hostile towards physician. Patient then eloped. Departure - Departure Disposition: 01 Home, Self Care Clinical Impression: Neck pain
== END 2019-02-08 14:23 | disposition home or self-care (01) ==
LOC: ED 12:31
DX: M54.2 Cervicalgia (principal); F17.200 Nicotine dependence, unspecified, uncomplicated
CPT/HCPCS: 99281